=== PATIENT | female | born 1960 | race Hispanic/Latino ===

== ENCOUNTER 2024-04-01 07:36 | Day surgery (SDC) | payer BC ==
[2024-04-01] VITALS (13 sets, daily range): BP systolic 96–146; BP diastolic 53–70; PULSE 71–86; RESP 15–18
[~2024-04-01] VITALS: Ht 167.6 cm; Wt 73.0 kg
[~2024-04-01 07:36] MED LIST: ATOR40TA69 PO; LOSA25TA41 PO
[2024-04-01] MEDS: 0.9%NACL 1000ML 1,000 ML IV ONE (10:34)
[2024-04-01] MEDS ORDERED: PROPOFOL 10 MG/ML 20ML VIAL IV ONE ×2 (12:29→12:30)
== END 2024-04-01 14:30 | disposition home or self-care (01) ==
LOC: DAH 07:36 → ENDO 07:36
PROVIDERS: ATTEND Internal Medicine Gastroenterology
DX: Z12.11 Encounter for screening for malignant neoplasm of colon (principal); I10 Essential (primary) hypertension; E78.00 Pure hypercholesterolemia, unspecified; Z88.0 Allergy status to penicillin; Z79.899 Other long term (current) drug therapy; Z98.890 Other specified postprocedural states
CPT/HCPCS: 45378; J7030 ×2; J2704 ×2; A4620; A4215; A4223; A7002; A4222; A4221; A4663; A4606; G0121; J3490

== ENCOUNTER 2024-04-02 10:33 | Day surgery (SDC) | payer BC ==
[~2024-04-02] VITALS: Ht 167.6 cm; Wt 73.0 kg
[2024-04-02] VITALS (13 sets, daily range): BP systolic 98–134; BP diastolic 53–69; PULSE 71–84; RESP 14–20
[2024-04-02] MEDS: 0.9%NACL 1000ML 1,000 ML IV ONE (12:01)
[2024-04-02] MEDS ORDERED: PROPOFOL 10 MG/ML 20ML VIAL IV ONE (14:17)
[2024-04-02] MEDS ORDERED: LIDOCAINE PF 100MG/5ML (2%) SYRINGE 5ML ONE (14:18)
== END 2024-04-02 15:48 | disposition home or self-care (01) ==
LOC: ENDO 10:33 → DAH 10:33 → ENDO 15:48
PROVIDERS: ATTEND Internal Medicine Gastroenterology
DX: Z12.11 Encounter for screening for malignant neoplasm of colon (principal); I10 Essential (primary) hypertension; E78.00 Pure hypercholesterolemia, unspecified; Z88.0 Allergy status to penicillin; Z88.1 Allergy status to other antibiotic agents; Z79.899 Other long term (current) drug therapy
CPT/HCPCS: 45378; J7030; J2001; J2704; A4620; A4215 ×2; A4223; A4222; A4221; A4663; A4606; G0121; J3490